=== PATIENT | female | born 1965 | race Caucasian/White ===

== ENCOUNTER → 2018-10-17 | Outpatient (CLI) | payer BC ==
--- NOTE | 2018-10-18 11:06 | MM ---
Reason for exam: screening (asymptomatic). Last mammogram was performed 2 years and 10 months ago. History: Patient has history of other cancer at age 7 and is nulliparous. Family history of premenopausal breast cancer in mother at age 45. Benign excisional biopsy of the left breast. Physical Findings: A clinical breast exam by your physician is recommended on an annual basis and results should be correlated with mammographic findings. MG 3D Screening Mammo W/Cad Bilateral CC and MLO view(s) were taken. Prior study comparison: December 20, 2015, bilateral MG screening mammo w CAD. July 18, 2014, bilateral MG screening mammo w CAD. There are scattered fibroglandular densities. No significant changes when compared with prior studies. ASSESSMENT: Benign, BI-RAD 2 RECOMMENDATION: Routine screening mammogram of both breasts in 1 year.
== END | disposition home or self-care (01) ==
LOC: RADMAMWWP 14:26
PROVIDERS: ATTEND Family Medicine
DX: Z12.31 Encounter for screening mammogram for malignant neoplasm of breast (principal); Z80.3 Family history of malignant neoplasm of breast
CPT/HCPCS: 77063; 77067

== ENCOUNTER → 2020-11-08 | Outpatient (CLI) | payer BC ==
--- NOTE | 2020-11-12 11:13 | MM ---
Reason for exam: screening (asymptomatic). Last mammogram was performed 2 years and 1 month ago. History: Patient has history of other cancer at age 7 and is nulliparous. Family history of premenopausal breast cancer in mother at age 45. Benign excisional biopsy of the left breast. Physical Findings: A clinical breast exam by your physician is recommended on an annual basis and results should be correlated with mammographic findings. MG Screening Mammo w CAD Bilateral CC and MLO view(s) were taken. Prior study comparison: October 17, 2018, bilateral MG 3d screening mammo w/cad. December 20, 2015, bilateral MG screening mammo w CAD. There are scattered fibroglandular densities. There is no discrete abnormality. No significant changes when compared with prior studies. ASSESSMENT: Negative, BI-RAD 1 RECOMMENDATION: Routine screening mammogram of both breasts in 1 year.
== END | disposition home or self-care (01) ==
LOC: RADMAMWWP 16:38
PROVIDERS: ATTEND Family Medicine
DX: Z12.31 Encounter for screening mammogram for malignant neoplasm of breast (principal); Z80.3 Family history of malignant neoplasm of breast
CPT/HCPCS: 77067

== ENCOUNTER 2021-04-11 12:44 | Emergency (ER) | payer OTHER, BC ==
[2021-04-11 13:20] VITALS: BP 150/85; PULSE 83; RESP 20; TEMP 98.7
--- NOTE | 2021-04-11 13:59 | XR ---
EXAMINATION TYPE: XR hand complete LT DATE OF EXAM: 04/11/2021 CLINICAL HISTORY: pain TECHNIQUE: Frontal, lateral and oblique images of the left hand are obtained. COMPARISON: None. FINDINGS: There is no acute fracture/dislocation evident. The joint spaces appear within normal limi ts. The overlying soft tissue appears unremarkable. IMPRESSION: There is no acute fracture or dislocation. ICD 10 NO FRACTURE, INITIAL EVALUATION
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
== END 2021-04-11 16:52 | disposition home or self-care (01) ==
LOC: EC 12:44
DX: S60.222A Contusion of left hand, initial encounter (principal); I10 Essential (primary) hypertension; E11.9 Type 2 diabetes mellitus without complications; V43.52XA Car driver injured in collision with other type car in traffic accident, initial encounter; Y92.481 Parking lot as the place of occurrence of the external cause
CPT/HCPCS: 99284

== ENCOUNTER → 2022-08-11 | Outpatient (CLI) | payer BC ==
--- NOTE | 2022-08-12 14:37 | MM ---
Reason for Exam: Screening (asymptomatic). Last mammogram was performed 1 year(s) and 9 month(s) ago. Patient History: Menarche at age 10. Patient has no children. Right ovary removed at age 32. Hysterectomy at age 32. Benign Excisional Biopsy on the left side. Mother had breast cancer, age 45. Risk Values: Clara 5 year model risk: 3.2%. NCI Lifetime model risk: 16.6%. Prior Study Comparison: 12/20/2015 Bilateral Screening Mammogram, [facility]. 10/17/2018 Bilateral Screening Mammogram, [facility]. 11/08/2020 Bilateral Screening Mammogram, [facility]. Tissue Density: The breast tissue is almost entirely fat. Findings: Analyzed By CAD. There is no suspicious group of microcalcifications or new suspicious mass in either breast. Overall Assessment: Negative, BI-RAD 1 Management: Screening Mammogram of both breasts in 1 year. A clinical breast exam by your physician is recommended on an annual basis and results should be correlated with mammographic findings. [facility] will attempt to contact patient to return for supplemental views and ultrasound if indicated. Electronically signed and approved by: Khari Nava DO
== END | disposition home or self-care (01) ==
LOC: RADMAMWWP 12:39
PROVIDERS: ATTEND Family Medicine
DX: Z12.31 Encounter for screening mammogram for malignant neoplasm of breast (principal); Z80.3 Family history of malignant neoplasm of breast
CPT/HCPCS: 77067

== ENCOUNTER → 2022-12-21 | Outpatient (CLI) | payer BC ==
--- NOTE | 2022-12-21 12:30 | CA ---
Exercise Stress Test Report Name: Nat Michelle Exam Date: 12/21/2022 10:04 Exam Location: [facility] Ht (in): 63 Wt (lb): 214 BSA: 1.99 Ordering Phys: Victoria Watkins DO Referring Phys: ALLYSON,, Technologist: Dylan Gay Age: 57 Gender: F : 1965 Procedure CPT: Indications: E11.59 ICD-10 Codes: Patient History: CHEST PAIN, NUMBNESS IN FACE/NECK, HTN, DIABETIC, ELEVATED CHOLESTEROL LEVELS, Medications: Meds past 24 hrs: Pretest Chest Pain: STRESS TEST [employer] Protocol Exercise Duration (min:sec): 06:[address] Depressions (mm): Angina Score: Harrison Score: Resting HR (bpm): 86 Peak HR (bpm): 152 Resting BP (mmHg): 136 / 64 Peak BP (mmHg): 180 / 53 MPHR: 161 Target HR: 137 % MPHR: 94 METS: 7.1 Total Dose: Peak Dose: Atropine: Double Product: 04468 BP Response: Stress Termination: TARGET HR REACHED/MAX EXERTION Stress Symptoms: NO SYMPTOMS Stress Summary: ECG ANALYSIS Resting ECG: Stress ECG: CONCLUSIONS Left bundle branch block pattern twelve-lead EKG Normal heart rate and blood pressure response Average exercise capacity of 6 minutes No new EKG abnormalities Occasional PVCs Nuclear portion will be reported separately Dr. Davi Tiwari MD (Electronically Signed) Final Date: 21 December 2022 12:29
--- NOTE | 2022-12-21 14:13 | NM ---
EXAMINATION TYPE: NM stress cardiolite complete DATE OF EXAM: 12/21/2022 COMPARISON: NONE CLINICAL INDICATION: Female, 57 years old with history of E11.59; TECHNIQUE: After the intravenous administration of 9.3 mCi Tc 99m Sestamibi - Rest images obtained 8 7 minutes post injection. The patient exercised using a SIENA protocol and 1 minute prior to peak e xercise was injected with 26.8 mCi Tc 99m Sestamibi - Stress images obtained 16 minutes post injectio n. FINDINGS: Targeted heart rate was achieved during performance of the study. Review of stress and rest SPECT mahamed ges demonstrates no distinct reversible perfusion abnormality. Small fixed defect involving the infer ior septum may be artifactual. Gated analysis shows normal wall motion with an estimated left ventri cular ejection fraction of 68 %. IMPRESSION: No scintigraphic evidence for reversible ischemia
== END | disposition home or self-care (01) ==
LOC: RADNMMAIN 07:33
PROVIDERS: ATTEND Family Medicine
DX: E11.59 Type 2 diabetes mellitus with other circulatory complications (principal); I49.3 Ventricular premature depolarization; I44.7 Left bundle-branch block, unspecified
CPT/HCPCS: 93017; 78452; A9500

== ENCOUNTER → 2023-08-30 | Outpatient (CLI) | payer BC ==
--- NOTE | 2023-09-01 14:19 | MM ---
Reason for Exam: Screening (asymptomatic). Last screening mammogram was performed 12 month(s) ago. Patient History: Menarche at age 10. Patient has no children. Right ovary removed at age 32. Hysterectomy at age 32. Benign Excisional Biopsy on the left side. Mother had breast cancer, age 45. Risk Values: Clara 5 year model risk: 3.3%. NCI Lifetime model risk: 16.2%. Prior Study Comparison: 10/17/2018 Bilateral Screening Mammogram, [facility]. 11/08/2020 Bilateral Screening Mammogram, [facility]. 08/11/2022 Bilateral MG screening mammo w CAD, [facility]. Tissue Density: The breasts are almost entirely fatty. Findings: Analyzed By CAD. Right breast: There is no suspicious group of microcalcifications or new suspicious mass. Left breast: There is no suspicious group of microcalcifications or new suspicious mass. Overall Assessment: Negative, BI-RAD 1 Management: Screening Mammogram of both breasts in [address] [facility] will attempt to contact patient to return for supplemental views and ultrasound if indicated. Patient should continue monthly self-breast exams. A clinical breast exam by your physician is recommended on an annual basis. This exam should not preclude additional follow-up of suspicious palpable abnormalities. Note on Clara scores and lifetime risk: 1. A Clara score greater than 3% is considered moderate risk. If this is the case, consider specialist referral to assess eligibility for a risk reducing agent. 2. If overall lifetime risk for the development of breast cancer is 20% or higher, the patient may qualify for future screening with alternating mammogram and breast MRI. Electronically signed and approved by: Khari Nava DO
== END | disposition home or self-care (01) ==
LOC: RADMAMWWP 15:32
PROVIDERS: ATTEND Family Medicine
DX: Z12.31 Encounter for screening mammogram for malignant neoplasm of breast (principal); Z80.3 Family history of malignant neoplasm of breast
CPT/HCPCS: 77063; 77067

== ENCOUNTER 2024-05-23 07:53 | Day surgery (SDC) | payer BC ==
[2024-05-18 15:26] VITALS: BMI 30.1
[~2024-05-23 07:53] MED LIST: LIDOCAINE 1% (10MG/ML) FOR IV START INTRADERMA PRN
[2024-05-23 08:42] VITALS: TEMP 97.7
[2024-05-23] MEDS: IV FLUID CONTINUATION 1,000 ML IV ONE (08:51)
[2024-05-23] MEDS: LACTATED RINGERS 1,000 ML IV SCH (08:51)
[2024-05-23 08:55] LABS: Glucose,Whole Blood 247 mg/dL (70-110)
[2024-05-23] MEDS: INSULIN ASPART (NovoLOG) 100 UNIT/ML VIAL SQ ONE ×2 (08:58→10:29)
[2024-05-23] MEDS ORDERED: PROPOFOL 10 MG/ML 20 ML VIAL IV ONE (09:53)
--- NOTE | 2024-05-23 10:07 | P.PCN ---
Date of Procedure: 05/23/24 Procedure(s) Performed: BRIEF HISTORY: Patient is a 59-year-old pleasant white female scheduled for an elective colonoscopy as a part of screening for colon cancer. PROCEDURE PERFORMED: Colonoscopy snare polypectomy. PREOPERATIVE DIAGNOSIS: Screening for colon cancer. IV sedation per Anesthesia. PROCEDURE: After informed consent was obtained, the patient, was brought into the endoscopy unit. IV sedation was administered by Anesthesia under continuous monitoring. Digital rectal examination was normal. Initially the Olympus CF-160 flexible video colonoscope was then inserted in the rectum, gradually advanced into the cecum without any difficulty. Careful examination was performed as the scope was gradually being withdrawn. Ileocecal valve and the appendiceal orifice were visualized and appeared normal. Prep was excellent. Mucosa of the cecum, had a 7 mm sessile polyp that was removed by cold snare polypectomy. Rest of the ascending colon, transverse colon, descending colon, normal. In the sigmoid colon there was a 3 mm polyp removed by cold snare polypectomy. In the rectum there was a 5 mm polyp removed by cold snare polypectomy. Rest of the sigmoid colon, and rectum appeared normal. Retroflexion was performed in the rectum and no lesions were seen. The patient tolerated the procedure well. IMPRESSION: 7 mm cecal polyp status post cold snare polypectomy 3 mm sigmoid colon polyp status post cold snare polypectomy 5 mm rectal polyp status post cold snare polypectomy RECOMMENDATIONS: Findings of this examination were discussed with the patient as well as her family. She was advised to follow-up with the biopsy results. If the biopsy reveals adenoma she can have repeat colonoscopy in 3 years.
[2024-05-23 10:16] LABS: Glucose,Whole Blood 273 mg/dL (70-110)
[2024-05-23 10:35] VITALS: BP 152/73; PULSE 82; RESP 16
== END 2024-05-23 10:59 | disposition home or self-care (01) ==
LOC: ORWHC2ENDO 07:53
PROVIDERS: ATTEND Internal Medicine Gastroenterology
DX: Z12.11 Encounter for screening for malignant neoplasm of colon (principal); D12.0 Benign neoplasm of cecum; K62.1 Rectal polyp; I10 Essential (primary) hypertension; E78.5 Hyperlipidemia, unspecified; E11.9 Type 2 diabetes mellitus without complications; E07.9 Disorder of thyroid, unspecified; K21.9 Gastro-esophageal reflux disease without esophagitis; G40.909 Epilepsy, unspecified, not intractable, without status epilepticus; Z79.890 Hormone replacement therapy; Z79.899 Other long term (current) drug therapy; Z90.710 Acquired absence of both cervix and uterus; Z88.6 Allergy status to analgesic agent; Z88.8 Allergy status to other drugs, medicaments and biological substances
CPT/HCPCS: 45385; J2704; 88305